=== PATIENT | male | born 1990 | race Hispanic/Latino ===

== ENCOUNTER 2017-08-14 12:12 | Emergency (ER) | payer SELFPAY ==
[2017-08-14 13:12] LABS: APPEARANCE,URINE Clear (CLEAR); BASOPHILS % (AUTO) 0.3 % (0.0-5.0); BILIRUBIN,URINE Negative (NEGATIVE); COLOR,URINE Yellow (YELLOW); EOSINOPHILS % (AUTO) 0.1 % (0.0-8.0); GLUCOSE, URINE (UA) Negative (NEGATIVE); HEMATOCRIT 44.3 % (42-54); KETONES,URINE Negative (NEGATIVE); LEUKOCYTE ESTERASE ,URINE Moderate (NEGATIVE); LYMPHOCYTES % (AUTO) 14.1 % (21.0-51.0); MEAN CORPUSCULAR HEMOGLOBIN 28.8 pg (27.0-33.0); MEAN CORPUSCULAR HGB CONC 34.5 g/dL (32.0-36.0); MEAN CORPUSCULAR VOLUME 83.6 fL (79-99); MONOCYTES % (AUTO) 3.3 % (3.0-13.0); NEUTROPHILS % (AUTO) 82.2 % (40.0-77.0); NITRATE,URINE Negative (NEGATIVE); OCCULT BLOOD,URINE Negative (NEGATIVE); PH,URINE 6.5 (5.0-8.0); PLATELET COUNT (AUTO) 223 K/uL (130-400); PROTEIN,URINE Negative (NEGATIVE); RED BLOOD CELL COUNT(AUTO) 5.29 MIL/uL (4.50-6.20); RED CELL DISTRIBUTION WIDTH 13.3 % (11.0-15.5)
[2017-08-14 13:20] LABS: CREATININE 0.6 mg/dL (0.5-1.5); POTASSIUM 3.6 mmol/L (3.5-5.1)
[2017-08-14 13:26] LABS: ALBUMIN 3.7 g/dL (3.5-5.0); BILIRUBIN,DIRECT 0.1 mg/dL (0.0-0.3); BILIRUBIN,TOTAL 0.3 mg/dL (0.2-1.0)
[2017-08-14 14:03] LABS: BACTERIA,URINE None Seen /HPF (None Seen); MUCUS,URINE Moderate LPF (None Seen); RBC,URINE None Seen /HPF (0-1); SQUAMOUS EPITHELIAL CELL,UR 0-2 /LPF (0-2)
[2017-08-14] MEDS ORDERED: LIDOCAINE HCL-MPF 1% 2ML VIAL ONE (14:33)
[2017-08-14] MEDS ORDERED: CEFTRIAXONE SODIUM 1 GM ONE (14:33)
== END 2017-08-14 15:12 | disposition home or self-care (01) ==
LOC: EDH 12:12
DX: N10 Acute pyelonephritis (principal); Z72.0 Tobacco use
CPT/HCPCS: 36415; 80048; 80076; 81001; 83690; 85025; 96372; 99284; J0696; J3490

== ENCOUNTER 2017-09-05 19:47 | Emergency (ER) | payer OTHER | END 2017-09-05 22:08 | disposition home or self-care (01) | LOC: EDH 19:47 | DX: S32.018A Other fracture of first lumbar vertebra, initial encounter for closed fracture (principal); Z72.0 Tobacco use; V86.59XA Driver of other special all-terrain or other off-road motor vehicle injured in nontraffic accident, initial encounter; Y93.89 Activity, other specified; Y92.89 Other specified places as the place of occurrence of the external cause; Y99.8 Other external cause status | CPT/HCPCS: 72128; 72131 ==

== ENCOUNTER 2018-05-21 12:05 | Emergency (ER) | payer OTHER ==
[2018-05-21] MEDS ORDERED: KETOROLAC TROMETHAMINE 60 MG/2 ML VIAL ONE (14:03)
== END 2018-05-21 14:27 | disposition home or self-care (01) ==
LOC: EDH 12:05
DX: M54.5 Low back pain (principal); Z87.891 Personal history of nicotine dependence; V43.63XA Car passenger injured in collision with pick-up truck in traffic accident, initial encounter; Y93.89 Activity, other specified; Y92.89 Other specified places as the place of occurrence of the external cause; Y99.8 Other external cause status
CPT/HCPCS: 72100; 96372; 99283; J1885

== ENCOUNTER 2018-09-17 23:18 | Emergency (ER) | payer OTHER | END 2018-09-18 00:23 | disposition home or self-care (01) | LOC: EDH 23:18 | DX: S93.432A Sprain of tibiofibular ligament of left ankle, initial encounter (principal); X58.XXXA Exposure to other specified factors, initial encounter; Y93.89 Activity, other specified; Y92.89 Other specified places as the place of occurrence of the external cause; Y99.8 Other external cause status | CPT/HCPCS: 73600 ==

== ENCOUNTER 2019-07-07 12:23 | Emergency (ER) | payer OTHER ==
[2019-07-07] MEDS ORDERED: IOHEXOL 350 MG/ML 100ML INFUS..BTL IV ONE (12:50)
[2019-07-07 13:03] LABS: APPEARANCE,URINE Clear (CLEAR); BILIRUBIN,URINE Negative (NEGATIVE); COLOR,URINE Yellow (YELLOW); GLUCOSE, URINE (UA) Negative (NEGATIVE); KETONES,URINE Negative (NEGATIVE); LEUKOCYTE ESTERASE ,URINE Negative (NEGATIVE); NITRATE,URINE Negative (NEGATIVE); OCCULT BLOOD,URINE Negative (NEGATIVE); PROTEIN,URINE Negative (NEGATIVE); UROBILINOGEN,URINE 0.2 mg/dL (0.2-1.0)
[2019-07-07 13:08] LABS: BASOPHILS % (AUTO) 0.3 % (0.0-5.0); HEMATOCRIT 44.7 % (42-54); LYMPHOCYTES % (AUTO) 23.8 % (21.0-51.0); MEAN CORPUSCULAR HEMOGLOBIN 28.8 pg (27.0-33.0); MEAN CORPUSCULAR VOLUME 84.8 fL (79-99); NEUTROPHILS % (AUTO) 67.1 % (40.0-77.0); PLATELET COUNT (AUTO) 187 K/uL (130-400); RED BLOOD CELL COUNT(AUTO) 5.27 MIL/uL (4.50-6.20); RED CELL DISTRIBUTION WIDTH 12.8 % (11.0-15.5); WHITE BLOOD COUNT (AUTO) 6.3 K/uL (4.8-10.8)
[2019-07-07 13:19] LABS: CREATININE 0.8 mg/dL (0.5-1.5); POTASSIUM 4.2 mmol/L (3.5-5.1)
[2019-07-07 13:23] LABS: INR 0.97 (0.85-1.15); PARTIAL THROMBOPLASTIN TIME 26.4 SEC (26.3-35.5); PROTHROMBIN TIME 10.2 SEC (9.6-11.6)
[2019-07-07 13:24] LABS: ALBUMIN 3.6 g/dL (3.5-5.0); BILIRUBIN,TOTAL 0.3 mg/dL (0.2-1.0); TOTAL PROTEIN, SERUM 7.1 g/dL (6.0-8.3)
[2019-07-07] MEDS ORDERED: SODIUM CHLORIDE 0.9% 1000ML 1,000 ML IV ONE (13:36)
[2019-07-07] MEDS ORDERED: TETANUS/DIPHTHERIA TOXOID [ADULT] 0.5 ML VIAL IM ONE (13:58)
[2019-07-07] MEDS ORDERED: OCTYL 2-CYANOACRYLATE 1 EACH TP ONE (14:54)
== END 2019-07-07 15:06 | disposition home or self-care (01) ==
LOC: EDH 12:23
DX: S81.012A Laceration without foreign body, left knee, initial encounter (principal); S20.219A Contusion of unspecified front wall of thorax, initial encounter; S30.811A Abrasion of abdominal wall, initial encounter; Z72.0 Tobacco use; V49.88XA Car occupant (driver) (passenger) injured in other specified transport accidents, initial encounter; Y93.89 Activity, other specified; Y92.488 Other paved roadways as the place of occurrence of the external cause; Y99.8 Other external cause status
CPT/HCPCS: 12032; 36415; 70450; 71260; 72125; 73562; 74177; 80053; 81003; 82550; 83690; 84484; 85025; 85610; 85730; 90471; 90714; 93005; 99285; J7030; Q9967

== ENCOUNTER 2020-05-08 19:29 | Emergency (ER) | payer OTHER ==
[2020-05-08] MEDS ORDERED: KETOROLAC TROMETHAMINE 60 MG/2 ML VIAL ONE (20:08)
[2020-05-08] MEDS ORDERED: ORPHENADRINE CITRATE 30 MG/ML ML ONE (20:08)
[2020-05-08] MEDS ORDERED: LIDOCAINE 5% TOPICAL PATCH TP ONE (20:27)
== END 2020-05-08 21:20 | disposition home or self-care (01) ==
LOC: EDH 19:29
DX: M54.5 Low back pain (principal); M62.838 Other muscle spasm; Z72.0 Tobacco use
CPT/HCPCS: 72100; 96372 ×2; 99284; J1885; J2360